=== PATIENT | female | born 1970 | race Caucasian/White ===

== ENCOUNTER 2020-06-01 13:17 | Outpatient (CLI) | payer BC, SELFPAY | END 2020-06-01 13:18 | disposition home or self-care (01) | LOC: ANHCOVIDVC 13:17 | PROVIDERS: PCP Family Medicine | DX: Z23 Encounter for immunization (principal) | CPT/HCPCS: 0001A; 91300 ==

== ENCOUNTER 2020-06-22 13:18 | Outpatient (CLI) | payer BC, SELFPAY | END 2020-06-22 13:19 | disposition home or self-care (01) | LOC: ANHCOVIDVC 13:18 | PROVIDERS: PCP Family Medicine | DX: Z23 Encounter for immunization (principal) | CPT/HCPCS: 0002A; 91300 ==

== ENCOUNTER 2021-01-14 01:56 | Day surgery (SDC) | payer BC, SELFPAY ==
[2020-12-27 11:50] VITALS: BMI 26.6
[2021-01-14 06:20] VITALS: BP 131/71; PULSE 96; RESP 18; TEMP 36.4; O2SAT 98; BMI 27.0
[2021-01-14] MEDS: LACTATED RINGERS 1,000 ML 150 ML IV CONT (06:41)
--- NOTE | 2021-01-14 07:06 | WPDANESEPPF ---
Anes - Initial Pre Proc Eval Procedure: Operation Date: 01/14/21 07:30 Proposed Procedures p Screening Colonoscopy - Robby Bauman MD Date/Time: 01/14/21 07:06 Surgeon: Robby Bauman MD Pre Op Diagnosis: neoplasm screening Patient Data Age: 50 Gender: F Height: 1.68 m Weight: 75.9 kg Last Vital Signs Temp 97.6 F 01/14/21 06:20 Pulse 96 01/14/21 06:20 Resp 18 01/14/21 06:20 BP 131/71 01/14/21 06:20 Pulse Ox 98 01/14/21 06:20 Allergies Allergy/AdvReac Type Severity Reaction Status Date / Time No Known Allergies Allergy Unknown Verified 01/14/21 06:30 Home Medications Medication Instructions Recorded Confirmed Type cetirizine [Zyrtec] 10 mg PO DAILY 12/27/20 01/14/21 History cholecalciferol (vitamin D3) 125 mcg PO DAILY 12/27/20 01/14/21 History krill oil 500 mg PO DAILY 12/27/20 01/14/21 History norethindrone-e.estradiol-iron 1 tablet PO DAILY 12/27/20 01/14/21 History [June03/07 (28)] sertraline 100 mg PO DAILY 12/27/20 01/14/21 History Patient hx anesthesia problems: none Family hx anesthesia problems: none Results Review: All pre-operative results and documents have been reviewed as part of the pre-operative evaluation. [facility] Past Medical History Medical History (Updated 01/14/21 @ 07:04 by Charlie Vargas MD) Anxiety Depression Social History Social History Smoking status: Never smoker Alcohol intake: current Alcohol use details: rarely Living arrangements: with family Spiritual care concerns: No Anes - Eval Final PreProcedure Day of Procedure 01/14/21 07:06 Patient weight: normal Heart: regular rate and rhythm Lungs: clear to auscultation Airway: Mallampati scale class II Neurological: alert and oriented Last oral intake: >/= 8 hours ASA classification: II Emergent: no Anesthetic plan: proceed Anesthesia type and monitoring: general GIVS and standard monitoring Results Review: All pre-operative results and documents have been reviewed as part of the pre-operative evaluation. Informed Consent: The patient's anesthetic plan and its attendant risks and benefits were discussed with the patient/family/POA. Questions were solicited and answers provided to the satisfaction of the patient/family/POA.
[2021-01-14] MEDS: SIMETHICONE ORAL SUSPENSION 20 MG/0.3 ML 30 ML BOTTLE 0.6 ML IRRIGATION (07:39)
--- NOTE | 2021-01-14 07:47 | P.CONGI_ITS ---
Assessment and Plan Assessment and plan (1) Encounter for screening colonoscopy: Code(s): Z12.11 - Encounter for screening for malignant neoplasm of colon Status: Acute Assessment and Plan: Patient presents for screening colonoscopy. She appears to be at average risk for colon polyps. GI Consult Note Consult date/time: 01/14/21 07:47 HPI: Neyda Aburto is a 50 year old female Presents for screening colonoscopy. Patient reports that her current weight appetite bowel movements are normal. She denies abdominal pain. She has had no bleeding. Family history is noncontributory. Review of Systems Review of Systems: All systems reviewed & are unremarkable except as noted in HPI and below PMFSH Past Medical History Medical History (Updated 01/14/21 @ 07:49 by Robby Bauman MD) Anxiety Depression Social History Social History Smoking status: Never smoker Alcohol intake: current Alcohol use details: rarely Living arrangements: with family Spiritual care concerns: No Meds Home Medications and Allergies Home Medications Medication Instructions Recorded Confirmed Type cetirizine [Zyrtec] 10 mg PO DAILY 12/27/20 01/14/21 History cholecalciferol (vitamin D3) 125 mcg PO DAILY 12/27/20 01/14/21 History krill oil 500 mg PO DAILY 12/27/20 01/14/21 History norethindrone-e.estradiol-iron 1 tablet PO DAILY 12/27/20 01/14/21 History [June03/07 (28)] sertraline 100 mg PO DAILY 12/27/20 01/14/21 History Allergies Allergy/AdvReac Type Severity Reaction Status Date / Time No Known Allergies Allergy Unknown Verified 01/14/21 06:30 Vital Signs Vital Signs - 24 hr 01/14/21 06:20 Temperature 97.6 F Pulse Rate 96 Respiratory Rate 18 Blood Pressure 131/71 Pulse Oximetry 98 Exam Narrative: Physical exam reveals patient to be alert. Vital signs stable. HEENT exam is unremarkable. Patient is anicteric. Lungs are clear to auscultation and percussion. Heart is without murmur or extra sounds. Abdominal exam bowel sounds are present soft nontender with no hepato splenomegaly. Digital external rectal exam is normal.
[2021-01-14 07:52] VITALS: BP 125/77; PULSE 74; RESP 17; O2SAT 100
[2021-01-14 08:02] VITALS: BP 120/59; PULSE 72; RESP 16; O2SAT 100
[2021-01-14 08:12] VITALS: BP 135/83; PULSE 65; RESP 15; O2SAT 100
== END 2021-01-14 08:24 | disposition home or self-care (01) ==
PROVIDERS: PCP Family Medicine; Visit Provider Internal Medicine Gastroenterology
PROC: 0DJD8ZZ Inspection of Lower Intestinal Tract, Via Natural or Artificial Opening Endoscopic (ICD-10-PCS; CPT 45378; principal; 2021-01-14 07:30)
DX: Z12.11 Encounter for screening for malignant neoplasm of colon (principal); K63.5 Polyp of colon; K64.8 Other hemorrhoids; F41.8 Other specified anxiety disorders
CPT/HCPCS: 45385; 88305; J2704; J7120

== ENCOUNTER → 2021-01-29 01:09 | Outpatient (CLI) | payer BC, SELFPAY ==
[2021-01-30 02:02] LABS: SARS-CoV-2 RNA PCR Positive
== END ==
PROVIDERS: PCP Family Medicine; Visit Provider Family Medicine
DX: U07.1 COVID-19 (principal)
CPT/HCPCS: C9803; U0003; U0005

== ENCOUNTER 2021-01-31 08:29 | Outpatient (RCR) | payer BC, SELFPAY ==
[2021-01-31 15:16] VITALS: BP 130/68; PULSE 91; RESP 18; TEMP 37.2; O2SAT 99
[2021-01-31] MEDS: ACETAMINOPHEN 325 MG TABLET 650 MG PO (15:24)
[2021-01-31] MEDS: FAMOTIDINE 20 MG TABLET PO (15:25)
[2021-01-31] MEDS: diphenhydrAMINE HCl CAP 25 MG CAPSULE PO (15:25)
[2021-01-31 16:26] VITALS: BP 121/75
--- NOTE | 2021-02-01 15:18 | PC.NURSE ---
Called Ms Aburto and she stated she is doing great and has no questions at this time.
== END 2021-01-31 17:00 ==
LOC: AMCINF 08:29
PROVIDERS: PCP Family Medicine; Visit Provider Internal Medicine Hematology & Oncology
DX: U07.1 COVID-19 (principal)
CPT/HCPCS: A9270; M0243; Q0244

== ENCOUNTER 2024-06-17 11:14 | Outpatient (CLI) | payer BC, OTHER, SELFPAY ==
--- NOTE | ~2024-06-17 | MM_ITS ---
EXAMINATION: MM screening mica BI w theresa HISTORY: Screening TECHNIQUE: Craniocaudal and mediolateral oblique 3-D tomosynthesis images were obtained and synthetic 2-D images were generated. CAD analysis was submitted and interpreted. COMPARISON: Comparison to multiple prior studies sequentially, with oldest reviewed study dated 11/01. BREAST PARENCHYMAL COMPOSITION: Not dense: There are scattered areas of fibroglandular density. FINDINGS: There is no evidence of suspicious mass, calcification, or architectural distortion to sugg est malignancy in either breast. There has been no suspicious interval change. IMPRESSION: 1. No mammographic evidence of malignancy. 2. Recommend routine screening mammography in one year. BI-RADS CATEGORY 1 - NEGATIVE Reviewed, dictated and finalized at location A.
== END 2024-06-17 11:15 | disposition home or self-care (01) ==
PROVIDERS: PCP Family Medicine; Visit Provider Obstetrics & Gynecology
DX: Z12.31 Encounter for screening mammogram for malignant neoplasm of breast (principal)
CPT/HCPCS: 77063; 77067

== ENCOUNTER 2024-08-10 08:37 | Outpatient (CLI) | payer BC, OTHER, SELFPAY ==
[2024-08-10 09:08] LABS: Basophils Percent Auto 0.5 % (0.2-1.2); Eosinophils Absolute Auto 0.2 K/mm3 (0-0.3); Eosinophils Percent Auto 2.2 % (0-4.4); Hematocrit 40.1 % (37.0-47.0); Hemoglobin 12.7 g/dL (12.0-15.0); Immature Granulocyte Absolute 0.02 K/mm3 (0.00-0.031); Immature Granulocyte Percent A 0.3 % (0-0.5); Lymphocytes Absolute Auto 1.97 K/mm3 (0.9-3.2); Lymphocytes Percent Auto 26.7 % (18.3-44.2); Mean Corpuscular HGB Conc 31.7 g/dl (32-36); Mean Corpuscular Hemoglobin 27.7 pg (26-34); Mean Corpuscular Volume 87.6 fl (80-100); Mean Platelet Volume 9.2 fl (7.4-10.4); Monocytes Absolute Auto 0.6 K/mm3 (0.1-0.6); Monocytes Percent Auto 7.6 % (2.6-8.5); Neutrophils Absolute Auto 4.6 K/mm3 (1.3-6.7); Neutrophils Percent Auto 62.7 % (45.5-73.1); Platelet Count Result 258 k/mm3 (150-375); Red Blood Count 4.58 M/mm3 (4.2-5.4); Red Cell Distribution Width 13.5 % (11.5-14.5); White Blood Count 7.4 K/mm3 (4.5-10.0)
[2024-08-10 09:20] LABS: Alanine Aminotransferase 17 U/L (6-35); Alkaline Phosphatase 79 U/L (38-126); Anion Gap 7 mmol/L (4-12); Aspartate Amino Transferase 26 U/L (14-36); Bilirubin,Total 0.6 mg/dL (0.2-1.3); Blood Urea Nitrogen 10 mg/dL (7-17); Calcium 9.2 mg/dL (8.4-10.2); Carbon Dioxide 26 mmol/L (22-30); Chloride 103 mmol/L (98-107); Cholesterol 229 mg/dL (0-200); Estimated Glomerular Filt Rate > 60; Glucose 99 mg/dL (65-110); HDL Direct 52 mg/dL; Potassium 3.8 mmol/L (3.4-5.0); Sodium 136 mmol/L (137-145); Total Protein 7.2 g/dL (6.3-8.2); Triglycerides 88 mg/dL (<150)
[2024-08-10 09:23] LABS: Partial Thromboplastin Time 33.9 Seconds (22.3-36.8)
[2024-08-10 09:31] LABS: LDL Cholesterol Direct 129 mg/dL
[2024-08-11 06:39] LABS: Myeloperoxidase Ab <1.0 AI
== END 2024-08-10 08:38 | disposition home or self-care (01) ==
PROVIDERS: PCP Family Medicine
DX: Z13.220 Encounter for screening for lipoid disorders (principal); D69.2 Other nonthrombocytopenic purpura
CPT/HCPCS: 36415; 80053; 80061; 85025; 85730; 86036